=== PATIENT | female | born 1985 | race Caucasian/White ===

== ENCOUNTER → 2020-09-29 | Outpatient (REF) ==
--- NOTE | 2020-09-29 18:30 | REP ---
INDICATION: DDD. COMPARISON: None. TECHNIQUE: AP and lateral views of the lumbar spine are provided. FINDINGS: Lumbar vertebral body heights are preserved. Alignment is normal. There is sacralization of the transverse processes at L5 bilaterally with pseudoarthrosis between the transverse process at 5 and the sacrum on both sides. Pedicles and posterior elements are otherwise intact. Disc spaces are maintained. There is no evidence of spondylolysis or spondylolisthesis. Sacrum and SI joints are unremarkable. Psoas margins are symmetric. IMPRESSION: Sacralization of the transverse processes of L5 bilaterally. Otherwise negative lumbar spine radiographs. <Electronically signed by Alejo Ha > 09/29/20 [id number]
== END ==
LOC: M RAD 11:18
PROVIDERS: ATTEND Internal Medicine
DX: M54.5 Low back pain (principal)

== ENCOUNTER → 2023-04-24 | Outpatient (REF) | LOC: M PLAIMG 14:29 | PROVIDERS: ATTEND Internal Medicine | DX: R52 Pain, unspecified (principal) ==